=== PATIENT | male | born 1975 | race Two or more races ===

== ENCOUNTER 2025-01-11 11:20 | Emergency (ER) | payer MEDICAID, SELFPAY ==
--- NOTE | 2025-01-11 11:21 | PC.NURSE ---
PT ARRIVED AT 1120 BY AMBULANCE AND WAS IMMEDIATELY EVALUATED BY DR. HADDAD. TAKEN DIRECTLY TO CT STROKE ALERT. PER MEDIC, PT WAS LAST NORMAL AT 2300 LAST NIGHT WHEN GOING TO BED. TODAY FAMILY WENT TO GET PT UP AT 1100 AND PT FOUND CONFUSED AND WITH RIGHT FACIAL DROOP AND RIGHT ARM/LEG FLACCID. G-FAST 3 PER SKI LIFT OPERATOR
--- NOTE | 2025-01-11 11:23 | EKG_ITS ---
[facility] Test Date: 2025-01-11 Pat Name: MERY WRAY Department: Room: - Gender: Male Ship Manager: : 1975 Requested By: Anam Hinton Order Number: [id number] Reading MD: Anam Hinton Measurements Intervals [place] Rate: 94 P: 58 NH: 141 QRS: 40 QRSD: 92 T: 52 QT: 347 QTc: 434 Interpretive Statements SINUS RHYTHM No previous ECG available for comparison /store/S0/[id number]/ecg/[id number].pdf
--- NOTE | 2025-01-11 11:24 | EDNOTE_ITS ---
Neuro Symptoms Deficit-RME/HPI General Chief Complaint: Neuro Symptoms/Deficit Stated Complaint: STROKE Time Seen by Provider: 01/11/25 11:22 Arrival date/time: 01/11/25 11:21 RME / HPI RME / HPI Narrative: DR. HINTON MAIN ED EVALUATION: 49 year old male with past medical history significant for hypertension and diabetes presents to the Emergency Department [facility] with complaints of right hemiparesis and aphasia since 1100 hours. Symptoms are moderate. Last well known time was 2300 hours yesterday. No other symptoms reported at this time. Limited history. Related Data Home Medications ?Medication ?Instructions ?Recorded ?Confirmed metformin 1,000 mg tablet 1,000 mg PO BID Diabetes #0 tabs 12/29/14 07/25/19 (Glucophage) glipizide 5 mg tablet 5 mg PO QDAY ##21 09/08/16 0 07/25/19 lisinopril 5 mg tablet 5 mg PO QDAY ##30 09/08/16 0 07/25/19 sitagliptin [Januvia] PO 07/25/19 07/25/19 Previous Rx's ?Medication ?Instructions ?Recorded ibuprofen 800 mg tablet 800 mg PO QID PRN pain #20 t abs 02/04/19 acetaminophen 650 mg 650 mg PO Q8H PRN fever or p ain 11/10/19 tablet,extended release #30 tabs amoxicillin 875 mg-potassium 1 tab PO Q12H #20 tabs clavulanate 125 mg tablet (Augmentin) ibuprofen 600 mg tablet 600 mg PO Q8H PRN fever or p ain 11/10/19 #30 tabs meclizine 25 mg tablet 25 mg PO BID PRN dizziness # 30 tabs 11/14/19 Allergies Allergy/AdvReac Type Severity Reaction Status Date / Time No Known Allergies Allergy Verified 11/21/21 17:59 Review of Systems Review of Systems ROS Unobtainable: unobtainable due to mental status Past Medical History Past Medical History CARDIAC: Positive Hypertension ENDOCRINE: Positive Diabetes Mellitus Type 2 Social History SMOKING STATUS: Unknown if ever smoked ED Exam Narrative Physical exam: Patient comes in with a stroke alert by EMS. Physical Exam: General: The vital signs were reviewed. Patient's blood pressure per EMS was 172/81 he is alert opens eyes is a dense right hemiparesis. Mental status is diminished but he does respond to give eye contact. The patient is non- toxic, in no apparent distress and appears healthy with a patent airway, no respiratory distress and has no apparent circulatory problems. Head & Scalp: Normocephalic, atraumatic. Face: Appears normal and is without lesions, deformity. Ears: Left external pinna appears normal. Right external pinna appears normal. Eyes: The sclera is anicteric. No obvious photophobia. The Left and Right Orbit/Lid/Conjunctiva appears normal without swelling, discoloration or injection. Nose: The nose is without deformity, discharge or tenderness; Throat: Appears normal. The mucous membranes are pink and moist without exudates, redness or mass seen. The tongue appears normal. Neck: The neck is supple and no apparent mass or adenopathy. Chest: The chest wall is normal in size and symmetry and has no chest wall tenderness or crepitus. The patient displays normal ventilator effort without retractions, accessory muscle use and has adequate air movement bilaterally with no wheezes and no rales. Cardiovascular: Regular rate and rhythm; No murmurs, rubs, or gallops; Gastrointestinal: The abdomen appears normal. No obvious hernias or mass. The abdomen is soft and benign, non-distended, with no pain, no guarding and no rebound tenderness. Bowel sounds are present and normal sounding. No CVA tenderness. Genitourinary: Back/Spine: Normal inspection Extremities/Musculoskeletal/lymphatic: The bilateral upper and lower extremities are warm. There is no evidence of arterial insufficiency. There is no evidence of venous insufficiency/edema. The patient spontaneously moves bilateral upper and lower extremities with no pain and no limitation of movement. There is no apparent, injury or trauma. Skin: The skin is warm, dry and intact. No rashes. No petechia. No purpura. No abnormal bruising. The color is appropriate with no cyanosis. Mental status/Psychiatric: Mental status is appropriate for age. The patient has no apparent delusions, visual hallucinations, no apparent audible hallucinations. The patient has no apparent suicidal thoughts/ideation and no apparent homicidal thoughts/ideation. Neurological: The patient is awake, alert, minimally interactive but does spontaneously open eyes and tracks with eyes. He is not verbal. He is got dense right hemiparesis that is evidently new and patient was last seen normal at 2300 hrs. yesterday evening. Left arm and leg move on command Course Quality Measures none Orders Category Date Time Status Bedside Blood Glucose NOW Care 01/11/25 11:23 Active Tennis Net Maker NOW Care 01/11/25 11:23 Active Continuous Pulse Oximetry NOW Care 01/11/25 11:23 Completed EKG (ED ONLY) *Do not use* NOW Care 01/11/25 11:23 Completed In and Out Catheter NEEDED Care 01/11/25 11:23 Active Insert IV NOW Care 01/11/25 11:23 Completed NIH Stroke Scale now Care 01/11/25 11:23 Active NPO NOW Care 01/11/25 11:23 Active Nurse Swallow Screen x1 Care 01/11/25 11:23 Active Consult to Neurology / Tele-Neurology Routine Cons 01/11/25 11:23 Active Transfer to another facility [Transfer/Discharge] Stat Discharge 01/11/25 12:[address] angio stroke protocol Stat Exams 01/11/25 11:[address] stroke protocol Stat Exams 01/11/25 11:23 Completed EKG (ED Only) Stat Exams 01/11/25 11:23 Draft CBC Stat Lab 01/11/25 11:28 Completed Comprehensive Metabolic Panel Stat Lab 01/11/25 11:28 Completed Drug Screen,Urine Stat Lab 01/11/25 11:23 Ordered HCG Titer if Positive Stat Lab 01/11/25 11:28 Completed Magnesium Stat Lab 01/11/25 11:28 Completed Partial Thromboplastin Time Stat Lab 01/11/25 11:28 Completed Prothrombin Time with INR Stat Lab 01/11/25 11:28 Completed Troponin I Stat Lab 01/11/25 11:28 Completed Urinalysis Stat Lab 01/11/25 11:23 Ordered Urine Culture Stat Lab 01/11/25 11:23 Ordered Labetalol IV [Trandate IV] Med 01/11/25 12:03 Discontinued 20 mg IVP X1 ONE Mannitol Inj 20% IVPB 250 ml Med 01/11/25 13:00 Active IV X1 Ondansetron Inj [Zofran Inj] Med 01/11/25 11:23 Active 4 mg IV Q4HR PRN hydrALAZINE INJ [Apresoline Inj] Med 01/11/25 12:23 Discontinued 20 mg IV X1 ONE Oxygen Delivery NOW RT 01/11/25 11:23 Active Vital Signs Vital signs: Vital Signs Pulse Rate 91 01/11/25 11:25 Respiratory Rate 12 01/11/25 11:25 Blood Pressure 177/114 H 01/11/25 11:25 Pulse Oximetry (%) 99 01/11/25 11:25 Oxygen Delivery Method Room Air 01/11/25 11:25 Neuro Symptoms / Deficit MDM Narrative MDM Narrative:: Patient 49-year-old who approximate 1100 hrs. with right hemiparesis and aphasic and was last seen normal yesterday evening at 2300 hrs. Clearly is out of the window for tPA. Patient went to the scanner immediately after arrival. Medical workup was ordered and pending as of 1126 hrs. CAT scan was done patient has an obvious basal ganglier intraparenchymal bleed with extension into the ventricle. With some midline shift. Also the teleneurologist on-call who is doing a stroke alert called and informed me of the basal ganglier bleed with extension of the ventricles. Reevaluation of the patient when she was brought back to room 3 reveals him to have an aphasia but he is alert opens eyes follows commands wiggles his toes and moves his left arm on command. Does not appear to have any airway compromise at this time do not see any reason to intubate him at this point. Note patient is mildly hypertensive and the goal is to get him under 140. Some labetalol was ordered at 1200 hrs. and transfer nurse was contacted and will arrange transfer. I reevaluated this patient 3 times while he was in the ER with no change in his mental status. He still protecting his airway. He opens eyes and follows commands. Transfer nurse connected with [facility] and later connected me with the neurosurgeon Dr. figueroa and we discussed the case he was content with the blood pressure staying under 140 and asked that we give 1 dose of mannitol 50 g. When back in the room plan and transferring and also the airflight team has arrived and gave report to them and the EMS teams. Patient's labs reveal a sodium of 133 potassium 4.5 chloride 96 BUN 16 creatinine 1.0 glucose is elevated at 306 transaminases are normal bilirubin are normal. UA is still pending or never collected white count 7.8 hemoglobin 16.1 some mild polycythemia possibly due to dehydration further follow-up will be required Patient is a critical care patient with a head bleed at appears to have a stable mental status during the hour and a half the patient's been in the emergency department. Blood pressure has been controlled with 1 dose of labetalol and 1 dose of hydralazine as of 1258 hrs. Pilar Blancas am scribing for and in the presence of Dr. Hinton. Patient data External records reviewed:: [facility] previous records (Reviewed last ED visit dated 11/21/21, discharged with the following: Open wound of right hip) Clinical information provided by:: EMS Social determinants that could affect healthcare access:: none Patient has the following chronic illnesses:: hypertension and diabetes How is presenting disease/condition affected by chronic disease/condition?: exacerbated by Evaluation data The following diagnostics were reviewed and interpreted by me:: lab results, radiology exam(s) and EKG tracing(s) (EKG#1: EKG at 1153 hours. Interpreted by me: sinus rhythm, rate 94, no STEMI) Lab and/or radiology exams considered but not ordered:: none Interpretation Summary: See above under MDM narrative. RADIOLOGY Procedure(s): CT stroke protocol Accession Number(s): [id number] cc: Pollo Wheat MD; Anam Hinton MD; Prateek Medina MD~ Examination: CT brain head without contrast. 2-D sagittal coronal reconstructions Date and time of exam:January 11, 2024 at 11:25 AM CTDI: vol (mGy):55.5 DLP: (mGycm):1235 Technique: Multiple CT axial sections of the brain have been obtained, 5 mm slice thickness. Contrast has not been administered. 2-D sagittal, coronal reconstructions have been obtained Low dose protocols were performed. One or more of the following dose reduction techniques were used; automated exposure control, adjustment of the mA and/or KV according to patient size, use of iterative reconstruction technique. Findings: 4 cm left basal ganglia hemorrhage which has ruptured into the ventricular system At the 6 mm shift of the frontal horns to the right, hemorrhage in the left frontal horn and third ventricle and left occipital horn as well as right occipital horn as well as fourth ventricle Cranial vault intact Impression: Large left basal ganglia hemorrhage which has ruptured into the ventricular system with mass effect Dictated By: Prateek Medina MD Medications / Prescriptions Medications or Prescriptions considered but not ordered:: none Medication administrations:: Medication Administration History Mannitol (Mannitol Inj 20% Ivpb) 250 mls @ 1,500 mls/hr IV X1 ONE Stop: 01/11/25 13:09 Ondansetron HCl (Ondansetron Inj 2 Mg/Ml Inj 2 Ml) 4 mg IV Q4HR PRN PRN Reason: NAUSEA OR VOMITING Stop: 02/10/25 11:22 Discontinued Medications Hydralazine HCl (Hydralazine Inj 20 Mg/Ml Vial) 20 mg IV X1 ONE Stop: 01/11/25 12:24 Last Admin: 01/11/25 12:47 Dose: 20 mg Documented By: JANIS Labetalol HCl (Labetalol Inj 5 Mg/Ml Vial 20 Ml) 20 mg IVP X1 ONE Stop: 01/11/25 12:04 Last Admin: 01/11/25 12:07 Dose: 20 mg Documented By: DB see above Consultations Consultation(s) initiated? (list below): Yes Consultation #1 (Physician, Specialty, Details): Discussed test HPI, PMHx, lab, radiology results and/or management with Dr. Figueroa, neurosurgery from [facility]. Time: 12:40 Consultation #2 (Physician, Specialty, Details): Discussed test HPI, PMHx, lab, radiology results and/or management with Dr. Herrera, emergency department from [facility]. Accepts the pateint for transfer, ER to ER. Time: 12:45 Diagnosis Neuro Differential Diagnosis: subarachnoid hemorrhage, cerebrovascular accident and transient cerebral ischemia Most likely diagnosis given after review of the tests above:: As noted below. Admission Indicated Admission indicated?: not indicated Explain why admission is indicated or not indicated:: Patient needs higher level of care and will be transferred. Admission Request Was there a request for admission?: No Disposition Plan Disposition Plan: Transfer Critical Care Time Critical Care Time Critical Care Time: Yes Total Critical Care Time (min.): 75 Attestation: The high probability of sudden, clinically significant deterioration in the patient?s condition required the highest level of my preparedness to intervene urgently. The services I provided to this patient were to treat and/or prevent clinically significant deterioration. Services included the following: chart data review, reviewing nursing notes and/or old charts, documentation time, strategic solutions consultant collaboration regarding findings and treatment options, medication orders and management, direct patient care, vital sign assessments and ordering, interpreting and reviewing diagnostic studies and lab tests. Aggregate critical care time includes only time during which I was engaged in work directly related to the patient?s care, as described above, whether at bedside or elsewhere in the Emergency Department. It did not include time spent performing other reported procedures or the services of residents, students, nurses or physician assistants. Discharge Plan Plan Patient Disposition: [facility] Facility Pt Being Transferred to: Other-Specify in comment Service Needed for Transfer: Neurosurgery Disposition Comment: [facility] Prescriptions/Referrals Prescriptions/Med Rec: No Action sitagliptin [Januvia] PO acetaminophen 650 mg tablet extended release 650 mg PO Q8H PRN (Reason: fever or pain) Qty: 30 0RF Rx Instructions: swallow whole; do not crush, chew, break, dissolve, cut, or open amoxicillin-pot clavulanate [Augmentin] 875-125 mg tablet 1 tab PO Q12H Qty: 20 0RF ibuprofen 600 mg tablet 600 mg PO Q8H PRN (Reason: fever or pain) Qty: 30 0RF Rx Instructions: prn pain / fever metformin [Glucophage] 1,000 MG tablet 1,000 mg PO BID Qty: 0 lisinopril 5 MG tablet 5 mg PO QDAY Qty: 30 glipizide 5 MG tablet 5 mg PO QDAY Qty: 21 meclizine 25 mg tablet 25 mg PO BID PRN (Reason: dizziness) Qty: 30 0RF ibuprofen 800 mg tablet 800 mg PO QID PRN (Reason: pain) Qty: 20 0RF Referrals: Pollo Wheat MD [Primary Care Provider] - In 1 week Problem List Clinical Impression: Acute spontaneous intraparenchymal intracranial hemorrhage, Diabetes mellitus, Acute right hemiparesis, Aphasia, Closed intraventricular hemorrhage Patient/Caregiver Discharge Instructions Print Language: Malagasy Stand Alone Forms: [employer] Award Info., Patient Portal Info Letter
[2025-01-11 11:25] VITALS: BP 177/114; PULSE 91; RESP 12; O2SAT 99
--- NOTE | 2025-01-11 11:35 | PC.CC ---
Addendum entered by Stephen Parker RN 01/11/25 13:18: 1317 [facility] through [employer]. [facility], spoke to Jonnie and she confirmed that she received the paperwork. Addendum entered by Stephen Parker RN 01/11/25 13:11: 1252 Made 2 transfer packets. 1 for [facility] with CD inside and 1 for [facility]. Completed all signatures. Transfer packets and number to call for report given to charge nurse. Addendum entered by Stephen Parker RN 01/11/25 13:10: 1245 Reach air crew already at bedside to potato picker the pt. Addendum entered by Stephen Parker RN 01/11/25 12:32: 1228 received call from Zeenat at [facility] that pt is accepted at [facility] from ED to ED. Accepting Dr. is Dr. Phan. Call report at [phone]. Addendum entered by Stephen Parker RN 01/11/25 12:26: 1223 received call from Ric at [facility] that team will be at bedside in 15 mins. Addendum entered by Stephen Parker RN 01/11/25 12:25: 1220 called X-ray and informed need CD for stat transfer. Addendum entered by Stephen Parker RN 01/11/25 12:24: name wrong at 1214 correct is called [facility], spoke to Ric to setup the transport. He stated he will call back after flight check. Addendum entered by Stephen Parker RN 01/11/25 12:20: 1214 called [facility], spoke to Reji to setup the transport. He stated he will call back after flight check. Addendum entered by Stephen Parker RN 01/11/25 12:13: 1206 I called [facility], spoke to Reji that Dr. Alvarado wants to call him directly and then connect with us. [address] Hinton and informed him that [facility] nurse wants us to call Dr. Alvarado directly on his phone. He stated to connect him to Dr. Alvarado. I called Dr. Alvarado and he stated that why I am calling him directly. Transfer center needs to call him and inform about the pt and then connect with referring provider. He stated that's the correct way to do it. Addendum entered by Stephen Parker RN 01/11/25 12:07: 1200 clinicals sent to [facility] ED. Addendum entered by Stephen Parker RN 01/11/25 12:07: 1138 called [facility], spoke to [facility] and initiated the transfer. She then transferred me to [facility]. I spoke to Ale GILLIAM and gave her clinicals. Ale stated Dr. Alvarado wants Dr. Hinton to call on his cell phone directly. She provided me with his contact number. Total call time 25min including holding time. Original Note: 1135 received call from ED charge nurse that pt needs to be transferred for left parietal ventricular bleed with midline shift need neuro-surgical services.
[2025-01-11 11:37] VITALS: PULSE 87
[2025-01-11 11:37] LABS: Basophils % (Auto) 1 % (0-2.5); Eosinophils # (Auto) 0.1 Thou/mm3 (0.0-0.5); Eosinophils % (Auto) 2 % (0-10); Hemoglobin 16.1 g/dL (13.5-16.0); Immature Granulocytes % (Auto) 0 % (0-0); Immature Granulocytes Auto 0.03 Thou/mm3 (0.00-0.00); Lymphocytes # (Auto) 1.4 Thou/mm3 (1.0-4.8); Lymphocytes % (Auto) 18 % (10-50); Mean Corpuscular Hemoglobin 26.2 pg (25.0-35.0); Mean Corpuscular Volume 75 fL (80-100); Monocytes # (Auto) 0.5 Thou/mm3 (0.0-0.8); Monocytes % (Auto) 7 % (0-12); Neutrophils # (Auto) 5.6 Thou/mm3 (1.8-7.7); Neutrophils % (Auto) 72 % (37-80); Nucleated Red Blood Cell % 0 /100 WBC (0); Platelet Count 248 Thou/mm3 (140-440); RDW Standard Deviation 33.3 fL (35.1-43.9); Red Blood Count 6.15 Miln/mm3 (4.50-5.90); White Blood Count 7.8 Thou/mm3 (3.8-10.6)
--- NOTE | 2025-01-11 11:46 | ESCONSULT_ITS ---
Tele Neuro Consultation Consultation Date 01/11/25 Most Recent Vital Signs Last Vital Signs Pulse 91 01/11/25 11:25 Resp 12 01/11/25 11:25 BP 177/114 H 01/11/25 11:25 Pulse Ox 99 01/11/25 11:25 O2 Del Method Room Air 01/11/25 11:25 Consultation Narrative [facility] Tele[facility]rology Consult [facility] Patient Name:???Eber Shaw Date of :???1975 Identification Number:??? Date of Service:???01/11/2025 11:20:36 Diagnosis:?I61.9 - Intracerebral haemorrhage, unspecified Impression: Patient Eber Shaw presented with symptoms of a AMS, right side weakness. CTH showed large intracranial hemorrhage with interventricular extension. LKN was 11 PM. Neurological examination revealed the patient could follow commands intermittently and move extremities in left side. The plan includes consulting neurosurgery, maintaining blood pressure below 140 mmHg, elevating the head of the bed, and transfer if neurosurgical services are unavailable. Recommendation: Diagnostic Studies: ?Repeat CT head in first 8-12hrs ?CTA head and neck with contrast Medications:? Hold?antiplatelet?therapy/NSAIDS/Anticoagulation ? Load with Keppra 1gm now. ? Keppra 500mg bid. Nursing Recommendations: ? Telemetry, IV Fluids?Avoid dextrose containing fluids, Maintain euglycemia ? Head of bed 30 degrees ? Neuro checks q1-2?hrs?during ICU stay ? Once stable neuro checks q4?hrs ? keep BP less than 140/90's with goal of 130/80s Disposition: ? Neurology will Follow Metrics: Last Known Well: 01/10/2025 23:00:00 Dispatch Time: 01/11/2025 11:20:36 Arrival Time: 01/11/2025 11:20:00 Initial Response Time: 01/11/2025 11:21:39Symptoms: AMS, R sided weakness . Initial patient interaction: 01/11/2025 11:29:55 NIHSS Assessment Completed: 01/11/2025 11:32:40Patient is not a candidate for Thrombolytic. Thrombolytic Medical Decision: 01/11/2025 11:25:00Patient was not deemed candidate for Thrombolytic because of following reasons: Current intracranial hemorrhage . I personally Reviewed the CT Head and it Showed ICH Primary Provider Notified of Diagnostic Impression and Management Plan on: 01/11/2025 11:33:20 History of Present Illness:Patient is a 49 year old Male. Patient was brought by EMS for symptoms of AMS, R sided weakness . Patient Eber Shaw presented with symptoms of a AMS, right side weakness. LKN was 11 PM. Neurological examination revealed the patient could follow commands intermittently and move extremities in left side. CTH showed large intracranial hemorrhage with interventricular extension. ? Past Medical History: ?Hypertension ?Diabetes Mellitus ?Hyperlipidemia unable to obtain due to:?? Patient Is Confused Medications: Anticoagulant use:??Unknown Antiplatelet use:?Unknown Reviewed EMR for current medications Allergies:? Reviewed Allergies Unable To Obtain Due To:?Patient Is Confused Social History: Unable To Obtain Due To Patient Status :?Patient Is Confused Family History: Family History Cannot Be Obtained Because:Patient Is Confused ROS :?ROS Cannot Be Obtained Because:? Patient Is Confused Past Surgical History: Past Surgical History Cannot Be Obtained Because: Patient Is Confused There Is No Surgical History Contributory To Today?s Visit ? Examination: BP(177/114),?Pulse(91),?Blood Glucose(309) 1A: Level of Consciousness - Arouses to minor stimulation?+ 1 1B: Ask Month and Age - Aphasic?+ 2 1C: Blink Eyes & Squeeze Hands - Performs Both Tasks?+ 0 2: Test Horizontal Extraocular Movements - Normal?+ 0 3: Test Visual Renee - No Visual Loss?+ 0 4: Test Facial Palsy (Use Grimace if Obtunded) - Partial paralysis (lower face)? + 2 5A: Test Left Arm Motor Drift - No Drift for 10 Seconds?+ 0 5B: Test Right Arm Motor Drift - No Movement?+ 4 6A: Test Left Leg Motor Drift - No Drift for 5 Seconds?+ 0 6B: Test Right Leg Motor Drift - No Effort Against [place]?+ 3 7: Test Limb Ataxia (FNF/Heel-Pedersen) - Does Not Understand?+ 0 8: Test Sensation - Mild-Moderate Loss: Can Sense Being Touched?+ 1 9: Test Language/Aphasia - Mild-Moderate Aphasia: Some Obvious Changes, Without Significant Limitation?+ 1 10: Test Dysarthria - Severe Dysarthria: Unintelligble Slurring or Out of Proportion to Aphasia?+ 2 11: Test Extinction/Inattention - Visual/tactile/auditory/spatial/personal inattention?+ 1 NIHSS Score:?17 ICH Score: 3 Joanna Coma Score:5-12 (+1) Age >= 80:No (0) ICH volume >= 30mL:Yes (+1) Intraventricular hemorrhage:Yes (+1) Infratentorial origin of hemorrhage:No (0) Pre-Morbid Modified [place] Scale:7 Points = Unable to assess This consult was conducted in real time using interactive audio and video technology. Patient was informed of the technology being used for this visit and agreed to proceed. Patient located in hospital and provider located at home /office setting. Due to the immediate potential for life-threatening deterioration due to underlying acute neurologic illness, I spent 35 minutes providing critical care. This time includes time for face to face visit via telemedicine, review of medical records, imaging studies and discussion of findings with providers, the patient and/or family. Dr Elfego Berger [facility] For Inpatient follow-up with [facility] physician please call [facility] at . As we are not an outpatient service for any post hospital discharge needs please contact the hospital for assistance. If you have any questions for the [facility] physicians or need to reconsult for clinical or diagnostic changes please contact us via [facility] at .
[2025-01-11 11:50] LABS: Partial Thromboplastin Time 26.7 Seconds (22.0-36.0); Prothrombin Time 10.6 Seconds (9.0-12.2)
--- NOTE | 2025-01-11 11:55 | PRELIM_ITS ---
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 Mild adjacent mass effect is seen. Midline shift of 2 mm to the right. The calvarium is unremarkable. The mastoid air cells and the visualized paranasal sinuses are clear. 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 Midline shift of 2 mm to the right. Discussion Details: Results verbally communicated to : Dr. Hinton at 11:49 AM 01/11/2025 Report Electronically Signed By: Vincent Hussein 01/11/2025 11:54:01 AM [EST]
[2025-01-11 11:56] LABS: Alanine Aminotransferase 15 U/L (10-49); Albumin, Serum 4.5 gm/dL (3.5-5.0); Albumin/Globulin Ratio 1.6 (1.2-2.2); Alkaline Phosphatase 99 U/L (46-116); Anion Gap 9 (7-16); Aspartate Amino Transferase < 8 U/L (0-34); BUN/Creatinine Ratio 16 Ratio (12-20); Bilirubin,Total 0.7 mg/dL (0.3-1.2); Blood Urea Nitrogen 16 mg/dL (9-23); Calcium 9.7 mg/dL (8.3-10.6); Calcium (Corrected) 9.7 mg/dL (8.5-10.1); Carbon Dioxide 27.7 mMol/L (20.0-31.0); Chloride 96 mMol/L (98-107); Globulin 2.8 gm/dL (2.3-3.5); Glucose 306 mg/dL (74-106); Magnesium 1.7 mg/dL (1.6-2.6); Osmolality,Calculated 279 (275-295); Potassium 4.5 mMol/L (3.4-5.1); Sodium 133 mMol/L (136-145); Total Protein 7.3 gm/dL (5.7-8.2); Troponin I < 0.020 ng/mL (0.0-0.045); eGFR > 60 See Note
[2025-01-11 12:07] VITALS: BP 171/107; PULSE 96
[2025-01-11] MEDS: LABETALOL INJ 5 MG/ML VIAL 20 ML 20 MG IVP (12:07)
[2025-01-11 12:30] VITALS: BMI 27.7
[2025-01-11 12:33] LABS: HCG Titer if Positive Negative
[2025-01-11 12:47] VITALS: BP 145/92; PULSE 86
[2025-01-11] MEDS: hydrALAZINE INJ 20 MG/ML VIAL IV (12:47)
[2025-01-11 12:56] VITALS: BP 135/81; PULSE 78; RESP 20; O2SAT 98
[2025-01-11] MEDS: Mannitol Inj 20% IVPB 250 ML 1500 ML IV (12:59)
[2025-01-11 13:05] LABS: Collection Type, Urine Catheter
--- NOTE | 2025-01-11 13:05 | PC.NURSE ---
FLIGHT CREW AT BEDSIDE, REPORT GIVEN. FAMILY AT BEDSIDE. PACKET GIVEN TO CREW.
[2025-01-11 13:15] LABS: Bilirubin,Urine Negative (Negative); Blood,Urine Negative (Negative); Clarity,Urine Clear (Clear/Hazy); Color,Urine Lt-Yellow (Lt Yel-Yel); Glucose, Urine 4+ (Negative); Ketones,Urine 2+ (Negative); Leukocyte Esterase,Urine Negative (Negative); Nitrite,Urine Negative (Negative); Protein,Urine 1+ (Neg - Trace); RBC,Urine 1 /hpf (0-3); Specific Gravity,Urine 1.041 (1.001-1.035); Squamous Epithelial Cell,Urine 1 /hpf (0-5); Urobilinogen,Urine Negative mg/dL (0.0-1.0); WBC,Urine 1 /hpf (0-5)
--- NOTE | 2025-01-11 13:20 | PC.NURSE ---
REPORT GIVEN TO TAWANA CARDONA AT [facility]. PATIENT LEAVING ED WITH REACH WITH AN ETA OF 1415.
[2025-01-11 13:25] LABS: Amphetamine/Methamp Scrn,U Positive (Negative); Barbiturate Screen,Urine Negative (Negative); Benzodiazepines Screen,Urine Negative (Negative); Benzoylecgonine Screen, Ur Negative (Negative); Fentanyl Screen,Urine Negative (Negative); Opiate Screen,Urine Negative (Negative); THC Screen,Urine Negative (Negative)
== END 2025-01-11 13:22 | disposition short-term general hospital (02) ==
PROVIDERS: Emergency Provider Emergency Medicine; PCP Family Medicine
DX: I61.5 Nontraumatic intracerebral hemorrhage, intraventricular (principal); I62.9 Nontraumatic intracranial hemorrhage, unspecified; R47.01 Aphasia; G81.91 Hemiplegia, unspecified affecting right dominant side; R29.717 NIHSS score 17; E11.9 Type 2 diabetes mellitus without complications; I10 Essential (primary) hypertension; Z79.84 Long term (current) use of oral hypoglycemic drugs
CPT/HCPCS: 36415; 70450; 80053; 80307; 81001; 83735; 84484; 84703; 85025; 85610; 85730; 87086; 93005; 96374; 99291; 99292; J0360; J3490; J1920